=== PATIENT | male | born 1990 | race African-American/Black ===

== ENCOUNTER 2016-09-05 18:33 | Emergency (ER) ==
[2016-09-05 18:56] VITALS: BP 130/77
--- NOTE | 2016-09-05 19:58 | PROVIDER DOCUMENTATION ---
HPI-EENT General - General Chief Complaint: Earache Stated Complaint: LT EARACHE Time Seen by Provider: 09/05/16 19:49 Source: patient, family Allergies/Adverse Reactions: Patient Allergies Allergy/AdvReac Type Severity Reaction Status Date / Time No Known Allergies Allergy Verified 09/05/16 19:34 Home Medications: Home Medication List Medication Instructions Recorded Confirmed Last Taken Type Albuterol Sulfate Inhaler 2 puff INH Q6H PRN PRN 09/05/16 09/05/16 Unknown History [Ventolin Hfa] Neomycin/Polymyxin B Sulf/Hc 10 ml LEFT EAR Q4HR #1 solution 09/05/16 Unknown Rx [Tzzoczxy-Pcffvzsdo-In Ear Soln] - History of Present Illness-EENT General Nature of Presenting Problem: 26 year old male presents with c/o left ear canal tenderness. pt reports he was wrestling on the bed this evening and a Popsicle stick became stuck in his right ear. he then developed bleeding which has now stopped. he reports all pain , discomfort is resolved. EENT Location: reports: ear (L) Quality of Pain: reports: none Severity: reports: mild Onset/Duration: reports: this evening Timing: reports: improving, gone now Prearrival Treatment: Initiated no prearrival treatment Associated Symptoms: reports: ear drainage - Ears Ear Problem Symptoms: reports: discharge Ear Problem Context: reports: barotrauma, foreign body, trauma to ear Review of Systems - Adult - REVIEW OF SYSTEMS - ADULT Constitutional: reports: no symptoms reported. denies: chills, fever, fatique Eyes: reports: no symptoms reported. denies: discharge, blurred vision, double vision Ears, Nose, Mouth & Throat: reports: see HPI, ear discharge. denies: ear pain, hearing loss, tinnitus, epistaxis Cardiovascular: reports: no symptoms reported. denies: chest pain, palpitations , syncope Respiratory: reports: no symptoms reported. denies: chronic cough, cough, shortness of breath, wheezing Gastrointestinal: reports: no symptoms reported. denies: abdominal pain, diarrhea, nausea, vomiting Genitourinary: reports: no symptoms reported. denies: dysuria, hematuria, urgency Musculoskeletal: reports: no symptoms reported. denies: bone pain, joint pain, joint swelling, neck pain Integumentary: reports: no symptoms reported. denies: hives, itching, rash, skin sores/ulcer Neurological: reports: no symptoms reported. denies: ataxia, dizziness/vertigo , headache/migraines Psychiatric: reports: no symptoms reported Endocrine: reports: no symptoms reported Hematologic/Lymphatic: reports: no symptoms reported Allergic/Immunologic: reports: no symptoms reported All Other Systems: Reviewed and Negative Past History - Adult - PAST MEDICAL HISTORY-ADULT Review of Records: reports: Old Records Reviewed, Nursing Assessment Review, Medications Reviewed, Social history reviewed & non-contributory. Major Childhood Illnesses: reports: denies history Cardiovascular: reports: denies history Respiratory: reports: denies history Gastrointestinal: reports: denies history Obstetrical/Gynecological: reports: denies history Genitourinary: reports: denies history Musculoskeletal: reports: denies history Neurological: reports: denies history Endocrine/Immune: reports: denies history Other Conditions: reports: denies history - FAMILY HISTORY Family History: reviewed, not pertinent - SOCIAL HISTORY Smoking: cigarettes Provider spent 3-5 mins advising pt. on dangers of tobacco.: Discussed manners to quit use, and f/u contacts for add'l counseling. Substance Use: none/never Alcohol Use Frequency: never Physical Exam- EENT - Physical Exam EENT Initial Vital Signs Reviewed: Yes General Appearance: appears well, alert, no apparent distress Eye Exam: bilateral eye: normal inspection Ear Exam: right ear: canal normal, left ear: erythema (erythema, dried blood, no active bleeding), bilateral ear: auricle normal, TM normal Nasal Exam: normal inspection Throat Exam: normal mouth inspection, pharynx normal Neck: non-tender, full range of motion, supple, normal inspection Respiratory: chest non-tender, lungs clear, normal breath sounds Cardiovascular: normal peripheral pulses, regular rate, rhythm Abdominal Exam: normal bowel sounds, non tender, soft Lymphatic: no adenopathy Back Exam: normal inspection, no CVA tenderness, no vertebral tenderness Extremity: normal range of motion, non-tender, normal gait, normal inspection Integumentary: normal color, normal turgor, warm/dry Neurologic: grossly normal, no motor/sensory deficits Psych/Mental Status: normal mood/affect, normal thought content, normal thought process, oriented x 3 Progress - PLAN OF CARE/RESULTS Progress/Plan/Lab Results: Vital Signs - 24 hr 09/05/16 18:55 Temperature 98.1 F Pulse Rate 80 Respiratory 18 Rate Blood Pressure 130/77 O2 Sat by Pulse 100 Oximetry Departure - Departure Time of Disposition Order: 19:54 DIAGNOSIS: Trauma of ear canal Qualifiers: Encounter type: initial encounter Qualified Code(s): S09.91XA - Unspecified injury of ear, initial encounter Disposition: HOME 01 Certified Medical Emergency: Emergent Condition: Stable Additional Instructions: Use the drops as directed. Follow up with the specialist if not improving in 1 week. ED Follow Up Instructions: You have been treated by a care provider in the Emergency Department. These instructions are being provided to you so you can have an understanding of how to care for yourself upon discharge. Upon discharge from the Emergency Department, you are responsible for making arrangements for follow-up care by a physician of your choice. Take all prescribed medications as directed. Return to the Emergency Department immediately for any new or worsening symptoms. You may call the Physician Referral phone number at [phone] to obtain a list of Physicians who are taking new patients. Prescriptions: Neomycin/Polymyxin B Sulf/Hc [Cwppjuvk-Utankvvhg-Jq Ear Soln] 10 ml LEFT EAR Q4HR #1 solution Referrals: None,PCP [Primary Care Provider] - Chris Levin MD [STAFF PHYSICIAN] - Forms: Return to School/Parent Work Instructions: Ear Foreign Body, [id number] Attestation - Physician/ MICHAEL Attestation Patient care was provided by Advanced Practice Provider:: Yes Advanced Practice Provider:: Leatha Perez Advanced Practice Provider documentation review:: The Mid-level provider documentation, treatment plan and medical decision making was reviewed by the physician who agrees with all treatment and medical decision making by the P.
== END 2016-09-05 20:03 | disposition home or self-care (01) ==
LOC: ED 18:33
DX: S09.91XA Unspecified injury of ear, initial encounter (principal); H92.02 Otalgia, left ear; H92.22 Otorrhagia, left ear; F17.210 Nicotine dependence, cigarettes, uncomplicated; Z71.6 Tobacco abuse counseling; W22.8XXA Striking against or struck by other objects, initial encounter